=== PATIENT | female | born 1970 | race Caucasian/White ===

== ENCOUNTER 2016-07-13 23:31 | Emergency (ER) | payer MEDICAID ==
[~2016-07-13] VITALS: Ht 160 cm; Wt 92.0 kg
[~2016-07-13 23:31] MED LIST: BENT20TA PO; CPAP; FLEX10TA PO; HYDR50IN3 PO; HYOS0.1251 PO; LISI-363 PO; METH10TA PO; NAPR250T57 PO; OMEP20CA5 PO; PROM25TA5 PO; SUMA25TA2 PO; WAL-10TA2 PO; ZOLO20CO PO
[2016-07-13 23:54] VITALS: BP 111/78; PULSE 88; RESP 20; TEMP 98.7; O2SAT 97
[2016-07-14] MEDS ORDERED: PRIL20CA9 PO (01:21)
[2016-07-14] MEDS ORDERED: LORA10TA PO (01:21)
[2016-07-14] MEDS ORDERED: CYCL1TAB29 PO (01:21)
[2016-07-14] MEDS ORDERED: NAPR500T PO (01:21)
[2016-07-14] MEDS ORDERED: PROM25TA5 PO (01:21)
[2016-07-14] MEDS ORDERED: LEVS0.123 PO (01:21)
[2016-07-14] MEDS ORDERED: METH10TA PO (01:21)
[2016-07-14] MEDS ORDERED: ZOLO100T PO (01:21)
[2016-07-14] MEDS ORDERED: HYDR-3133 PO (01:21)
[2016-07-14] MEDS ORDERED: CEFT500T3 PO (02:23)
[2016-07-14] MEDS ORDERED: ALBU6.7H INH (02:23)
--- NOTE | 2016-07-14 02:23 | PD ---
HPI Chief Complaint: Cold / Flu Symptoms Time Seen by Provider: 02:17 Travel History International Travel<30 days: No Contact w/Intl Traveler<30days: No Traveled to known affect area: No History of Present Illness HPI 46 old female presents to the emergency department by private transportation for complaint of cold symptoms. Patient is had symptoms for 5-7 days. Patient denies fever but has had ongoing cough and wheezing. Patient denies sore throat or earache. Patient has had back pain associated with cough. No chest pain or abdominal pain. Patient states she has used an inhaler in the past is an out of her inhaler. Patient does smoke cigarettes. Patient has history of hypertension and denies diabetes. PFSH Past Medical History Narrative Medical Hypertension dyslipidemia seizure kidney stones renal stones tobaccoism cholecystectomy nursing notes reviewed Anxiety: Yes Depression: Yes Cancer: Yes (CERVICAL) Cardiovascular Problems: Yes High Cholesterol: Yes Chest Pain: Yes Diabetes: No Diminished Hearing: No GERD: Yes Hypertension: Yes Kidney Stones: Yes Reproductive: Yes Immunizations Current: No Migraines: Yes Seizures: Yes Sleep Apnea: Yes (CPAP AT NIGHT) Tetanus Vaccination: < 5 Years Influenza Vaccination: No ?: Not Menopausal: Yes Past Surgical History Cholecystectomy: Yes Genitourinary Surgery: Yes (BLADDER TUCK/KIDNEY STENTS) Hysterectomy: Yes Neurologic Surgery: Yes (C4 C5) Other Surgery: Yes (LEFT ARM STAPH INFECTION SEVERAL SURGERIES (X 12)) Social History Alcohol Use: No Tobacco Use: Yes (1 PPD) Substance Use: No Allergies-Medications (Allergen,Severity, Reaction): Coded Allergies: No Known Allergies (Verified , 07/14/16) Reported Meds & Prescriptions Reported Meds & Active Scripts Active Reported Zoloft (Sertraline HCl) 100 Mg Tab 100 Mg PO BID Phenergan (Promethazine HCl) 25 Mg Tab 25 Mg PO Q6H PRN Hydroxyzine HCl 25 Mg Tab 25 Mg PO TID Levsin (Hyoscyamine Sulfate) 0.125 Mg Tab 0.125 Mg PO Q6H Flexeril (Cyclobenzaprine HCl) 10 Mg Tab 10 Mg PO TID Loratadine 10 Mg Tab 10 Mg PO DAILY Methadone (Methadone HCl) 10 Mg Tab 10 Mg PO Q8HR Naproxen 500 Mg Tab 500 Mg PO BID Prilosec (Omeprazole) 20 Mg Cap 40 Mg PO DAILY Review of Systems Except as stated in HPI: all other systems reviewed are Neg General / Constitutional: No: Fever, Chills HENT: No: Congestion Cardiovascular: No: Chest Pain or Discomfort Respiratory: Positive: Cough, Wheezing Gastrointestinal: No: Abdominal Pain Genitourinary: No: Dysuria, Flank Pain Musculoskeletal: No: Myalgias, Arthralgias Skin: No Rash Neurologic: No: Weakness Psychiatric: No: Anxiety Endocrine: No: Heat Intolerance Hematologic/Lymphatic: No: Easy Bruising Physical Exam Narrative GENERAL: Well-developed well-nourished female in no acute distress no respiratory distress SKIN: Warm and dry. HEAD: Normocephalic. EYES: No scleral icterus. No injection or drainage. NECK: Supple, trachea midline. No JVD or lymphadenopathy. CARDIOVASCULAR: Regular rate and rhythm without murmurs, gallops, or rubs. RESPIRATORY: Breath sounds equal bilaterally few expiratory wheezes no rales or rhonchi. No accessory muscle use. GASTROINTESTINAL: Abdomen soft, non-tender, nondistended. MUSCULOSKELETAL: No cyanosis, or edema. BACK: Nontender without obvious deformity. No CVA tenderness. Data Data Last Documented VS Vital Signs Date Time Temp Pulse Resp B/P Pulse Ox O2 Delivery O2 Flow Rate FiO2 07/14/16 01:02 18 97 Room Air 07/13/16 23:54 98.7 88 111/78 MDM Medical Decision Making Medical Screen Exam Complete: Yes Emergency Medical Condition: Yes Medical Record Reviewed: Yes Differential Diagnosis Viral syndrome, environmental/seasonal allergies, bronchitis, pneumonia Narrative Course 46-year-old female with hypertension and history of bronchitis with ongoing tobacco use with nonproductive cough wheezing and upper respiratory infection symptoms; patient stable for outpatient management and follow-up with her primary care physician encouraged to discontinue tobacco use and prescriptions provided for Z-Mendel and albuterol. Diagnosis Primary Impression: Bronchitis Referrals: Primary Care Physician call for appointment Patient Instructions: General Instructions Additional Instructions: Increase fluid hydration Take acetaminophen or ibuprofen as needed per package directions for fever 100.4 F or greater Use inhaler as needed for wheezing/shortness of breath May use [id number] Coricidin HBP or Mucinex for cold symptoms Complete course of antibiotic Stop smoking cigarettes Return to the emergency department for any concerns or change in condition Med/Other Pt SpecificInfo: Prescription(s) given Scripts Albuterol 6.7 GM Inh (Proventil Hfa 6.7 GM Inh)90 Mcg/Act Aer2 Puff INH Q4-6H PRN (SHORTNESS OF BREATH) #1 INHALER Ref 0 Prov:Karen Conway MD 07/14/16 Cefuroxime (Ceftin)500 Mg [id number] Mg PO BID 10 Days Ref 0 Prov:Karen Conway MD 07/14/16 Disposition: 01 DISCHARGE HOME Condition: Stable Karen Conway MD Jul 14, 2016 02:23
[2016-07-14 02:39] VITALS: BP 110/78
== END 2016-07-14 02:41 | disposition home or self-care (01) ==
LOC: PHED 23:31 → PHEFT 07-14 02:41
DX: J40 Bronchitis, not specified as acute or chronic (principal); I10 Essential (primary) hypertension; E78.5 Hyperlipidemia, unspecified; F17.210 Nicotine dependence, cigarettes, uncomplicated
CPT/HCPCS: 99283

== ENCOUNTER 2016-11-01 22:42 | Emergency (ER) | payer MEDICAID ==
[~2016-11-01] VITALS: Ht 160 cm; Wt 92.4 kg
[~2016-11-01 22:42] MED LIST changes: +ALBU6.7H INH; -BENT20TA PO; +CEFT500T3 PO; -CPAP; +CYCL1TAB29 PO; -FLEX10TA PO; +HYDR-3133 PO; -HYDR50IN3 PO; -HYOS0.1251 PO; +LEVS0.123 PO; -LISI-363 PO; +LORA10TA PO; -NAPR250T57 PO; +NAPR500T PO; -OMEP20CA5 PO; +PRIL20CA9 PO; -SUMA25TA2 PO; -WAL-10TA2 PO; +ZOLO100T PO; -ZOLO20CO PO
[2016-11-01 22:58] VITALS: BP 123/80; PULSE 89; RESP 14; TEMP 97.5; O2SAT 98
--- NOTE | 2016-11-01 23:15 | PD ---
HPI Chief Complaint: Musculoskeletal Complaint Time Seen by Provider: 23:09 Travel History International Travel<30 days: No Contact w/Intl Traveler<30days: No Traveled to known affect area: No History of Present Illness HPI 46 old female presents to the emergency department for complaint of right-sided rib pain status post non-syncopal slip and fall while getting into a swimming pool with a slippery surface. Patient states that she contused her right chest wall against the handrail as she tried to enter the pool. Patient states she did not hit her head but did contuse her upper lip against the hand rail as well. Patient also strained her right fourth digit at the MCP but has not noticed any deformity redness swelling or decreased range of motion. Patient reports she is here to have x-rays of the right ribs she is concerned of fracture but does not want any other imaging performed that she does not feel it is necessary. Patient does take aspirin daily takes no other blood thinning agents. Patient did take Naprosyn prior to arrival to the emergency department. Injury occurred around 6 PM this evening. Patient states she did not hit her head or sustain other injury. No neck pain no back pain no shortness of breath no abdominal pain no other extremity injury. PFSH Past Medical History Narrative Medical Anxiety depression cervical cancer hysterectomy dyslipidemia hypertension left bundle branch block kidney stones stent sleep apnea seizure cholecystectomy arm surgery due to staph infection; tobacco use; nursing notes reviewed Anxiety: Yes Depression: Yes Cancer: Yes (CERVICAL) Cardiovascular Problems: Yes High Cholesterol: Yes Chest Pain: Yes Diabetes: No Diminished Hearing: No GERD: Yes Hypertension: Yes Kidney Stones: Yes Reproductive: Yes Immunizations Current: No Migraines: Yes Seizures: Yes Sleep Apnea: Yes (CPAP AT NIGHT) Menopausal: Yes Past Surgical History Cholecystectomy: Yes Genitourinary Surgery: Yes (BLADDER TUCK/KIDNEY STENTS) Hysterectomy: Yes Neurologic Surgery: Yes (C4 C5) Other Surgery: Yes (LEFT ARM STAPH INFECTION SEVERAL SURGERIES (X 12)) Social History Alcohol Use: No Tobacco Use: Yes (1 PPD) Substance Use: No Allergies-Medications (Allergen,Severity, Reaction): Coded Allergies: No Known Allergies (Verified , 11/01/16) Reported Meds & Prescriptions Reported Meds & Active Scripts Active Robaxin (Methocarbamol) 750 Mg Tab 750 Mg PO Q6HR Ibuprofen 800 Mg Tab 800 Mg PO Q8H PRN Proventil Hfa 6.7 GM Inh (Albuterol Sulfate) 90 Mcg/Act Aer 2 Puff INH Q4-6H PRN Reported Omeprazole 40 Mg Cap 40 Mg PO DAILY Claritin (Loratadine) 10 Mg Cap 10 Mg PO DAILY Zoloft (Sertraline HCl) 100 Mg Tab 100 Mg PO BID Phenergan (Promethazine HCl) 25 Mg Tab 25 Mg PO Q6H PRN Hydroxyzine HCl 25 Mg Tab 25 Mg PO TID Flexeril (Cyclobenzaprine HCl) 10 Mg Tab 10 Mg PO TID Methadone (Methadone HCl) 10 Mg Tab 10 Mg PO Q8HR Naproxen 500 Mg Tab 500 Mg PO BID Review of Systems Except as stated in HPI: all other systems reviewed are Neg General / Constitutional: No: Fever, Chills HENT: No: Congestion Cardiovascular: Positive: Chest Pain or Discomfort Respiratory: Positive: Pleuritic Pain, No: Shortness of Breath Gastrointestinal: No: Nausea, Vomiting, Abdominal Pain Genitourinary: No: Flank Pain Musculoskeletal: No: Myalgias, Arthralgias, Limited ROM Skin: No Rash Neurologic: No: Weakness Psychiatric: No: Anxiety Hematologic/Lymphatic: No: Easy Bruising Physical Exam Narrative GENERAL: Well-developed well-nourished male in no acute distress no respiratory distress; GCS 15 SKIN: Warm and dry. HEAD: Atraumatic. Normocephalic. EYES: Pupils equal and round. No scleral icterus. No injection or drainage. ENT: No nasal bleeding or discharge. Mucous membranes pink and moist. No upper lip edema ecchymosis abrasion or laceration dentition intact. NECK: Trachea midline. No JVD. Supple nontender no midline tenderness to direct palpation along the cervical spine CARDIOVASCULAR: Regular rate and rhythm. Chest wall: Mild tenderness to palpation along the right midaxillary line without abrasion laceration ecchymosis or crepitus. RESPIRATORY: No accessory muscle use. Clear to auscultation. Breath sounds equal bilaterally. GASTROINTESTINAL: Abdomen soft, non-tender, nondistended. Hepatic and splenic margins not palpable. MUSCULOSKELETAL: Extremities without clubbing, cyanosis, or edema. No obvious deformities. Patient is able to demonstrate full range of motion of all digits of the right hand without tenderness to palpation edema ecchymosis deformity; capillary refill brisk less than 2 seconds per digit. Bilateral radial pulses 2 + to palpation. NEUROLOGICAL: Awake and alert. No obvious cranial nerve deficits. Motor grossly within normal limits. Five out of 5 muscle strength in the arms and legs. Normal speech. PSYCHIATRIC: Appropriate mood and affect; insight and judgment normal. Data Data Last Documented VS Vital Signs Date Time Temp Pulse Resp B/P Pulse Ox O2 Delivery O2 Flow Rate FiO2 11/01/16 22:58 97.5 89 14 123/80 98 Orders Ribs, Uni (W/Exp Cxr-Min 3vw) (11/01/16 ) Ketorolac Inj (Toradol Inj) (11/02/16 00:45) Orphenadrine Inj (Norflex Inj) (11/02/16 00:45) MDM Medical Decision Making Medical Screen Exam Complete: Yes Emergency Medical Condition: Yes Medical Record Reviewed: Yes Interpretation(s) Last Impressions Ribs X-Ray 11/01/16 0000 Signed Impressions: Service Date/Time: Tuesday, November 01, 2016 23:16 - CONCLUSION: 1. No gross evidence of rib fracture. 2. At the right shoulder there is calcific tendinosis in the region of the rotator cuff. 3. Surgical clips in the right upper quadrant of the abdomen. Kei Bauer MD Differential Diagnosis Chest wall contusion, rib fracture, pneumothorax, multiple contusions Narrative Course Imaging of the right chest wall ordered Diagnosis Primary Impression: Rib contusion Qualified Code: S20.211A - Rib contusion, right, initial encounter Referrals: Pain Management call for appointment Primary Care Physician call for appointment Patient Instructions: General Instructions Med/Other Pt SpecificInfo: Prescription(s) given Scripts Methocarbamol (Robaxin)750 Mg [id number] Mg PO Q6HR #10 TAB Ref 0 Prov:Karen Conway MD 11/02/16 Ibuprofen 800 Mg [id number] Mg PO Q8H PRN (PAIN GREATER THAN 5) #12 TAB Ref 0 Prov:Karen Conway MD 11/02/16 Karen Conway MD Nov 01, 2016 23:15
[2016-11-01] MEDS ORDERED: OMEP40CA2 PO (23:16)
[2016-11-01] MEDS ORDERED: CLAR10CA3 PO (23:16)
--- NOTE | 2016-11-01 23:59 | RADRPT ---
EXAM DATE/TIME: 11/01/2016 23:16 [facility] COMPARISON: No previous studies available for comparison. INDICATIONS : Right sided rib pain after patient fell out of pool today MEDICAL HISTORY : None. SURGICAL HISTORY : None. ENCOUNTER: Initial ACUITY: 1 day PAIN SCORE: 8/10 LOCATION: Right axillary ribs FINDINGS: Multiple views of the right ribs were performed. There is no evidence of displaced fracture. No ivette tructive lesions or areas of periosteal thickening are seen. Expiratory view of the chest is negativ e for pneumothorax. The mediastinal structures are midline. CONCLUSION: 1. No gross evidence of rib fracture. 2. At the right shoulder there is calcific tendinosis in the region of the rotator cuff. 3. Surgical clips in the right upper quadrant of the abdomen. Kei Bauer MD on November 01, 2016 at 23:55 Board Certified Radiologist. This report was verified electronically.
[2016-11-02] MEDS ORDERED: IBUP800T23 PO (00:35)
[2016-11-02] MEDS ORDERED: ROBA750T PO (00:35)
[2016-11-02] MEDS ORDERED: KETOROLAC TROMETHAMINE 60 MG/2 ML (IM) VIAL IM ONE (00:45)
[2016-11-02] MEDS ORDERED: ORPHENADRINE INJ 60 MG/2 ML AMP IM ONE (00:45)
== END 2016-11-02 00:53 | disposition home or self-care (01) ==
LOC: PHED 22:42
DX: S20.211A Contusion of right front wall of thorax, initial encounter (principal); W01.0XXA Fall on same level from slipping, tripping and stumbling without subsequent striking against object, initial encounter
CPT/HCPCS: 71101; 96372; 99284; J1885; J2360

== ENCOUNTER 2016-11-08 19:38 | Emergency (ER) | payer MEDICAID ==
[~2016-11-08] VITALS: Ht 160 cm; Wt 93.1 kg
[~2016-11-08 19:38] MED LIST changes: -CEFT500T3 PO; +CLAR10CA3 PO; +IBUP800T23 PO; -LEVS0.123 PO; -LORA10TA PO; +OMEP40CA2 PO; -PRIL20CA9 PO; +ROBA750T PO
[2016-11-08 19:45] VITALS: BP 165/90; PULSE 91; RESP 20; TEMP 98.3; O2SAT 96
--- NOTE | 2016-11-08 20:53 | RADRPT ---
EXAM DATE/TIME: 11/08/2016 20:37 [facility] COMPARISON: CHEST SINGLE AP, February 15, 2015, 3:14. INDICATIONS : Right sided chest pain after fall 1 week ago MEDICAL HISTORY : None. SURGICAL HISTORY : None. ENCOUNTER: Initial ACUITY: 1 week PAIN SCORE: 9/10 LOCATION: Right lower chest FINDINGS: A single view of the chest demonstrates the lungs to be symmetrically aerated without evidence of mas s, infiltrate or effusion. The cardiomediastinal contours are unremarkable. Osseous structures demo nstrate ACDF hardware overlying the cervical spine. Calcified granulomas left lung base.. CONCLUSION: No acute disease. Ian Benavides MD on November 08, 2016 at 20:52 Board Certified Radiologist. This report was verified electronically.
[2016-11-08] MEDS ORDERED: HYDR-3533 PO ×2 (21:02→21:13)
--- NOTE | 2016-11-08 21:12 | PD ---
HPI Chief Complaint: Musculoskeletal Complaint Time Seen by Provider: 20:25 Travel History International Travel<30 days: No Contact w/Intl Traveler<30days: No Traveled to known affect area: No History of Present Illness HPI 46-year-old female presents to the emergency room for evaluation of right anterior rib pain for the past one week. Patient states she slipped in the pool and struck her chest up against the handrail. She had immediate pain. Patient came to the emergency room and had rib x-rays that were negative. She was discharged ibuprofen and Robaxin. States she was improving until today. States she woke up with worsening pain. Pain is worse with ambulation, deep breathing, bending, or twisting. Denies difficulty breathing or shortness of breath. History Past Medical History Anxiety: Yes Cancer: Yes (CERVICAL, OVARIAN TUMORS) Heart Rhythm Problems: Yes (LEFT BUNDLE BRANCH BLOCK) Cardiovascular Problems: Yes High Cholesterol: Yes Chest Pain: Yes Depression: Yes Diabetes: No GERD: Yes Hearing: No Hypertension: Yes Kidney Stones: Yes Pneumonia: Yes Reproductive: Yes (LASER SURGERY, COMPLETE HYSTERECTOMY) Immunizations Current: No Migraines: Yes Sleep Apnea: Yes (CPAP AT NIGHT) Ulcer: Yes (GASTRIC) Vision or Eye Problem: No ?: Not Menopausal: Yes : 1 Para: 1 Past Surgical History Section: Yes (1984) Cholecystectomy: Yes Genitourinary Surgery: Yes (BLADDER TUCK/KIDNEY STENTS) Hysterectomy: Yes (1988) Neurologic Surgery: Yes (C4 C5) Other Surgery: Yes (LEFT ARM STAPH INFECTION SEVERAL SURGERIES (X 12)) Social History Tobacco Use in Home: No Alcohol Use: No Tobacco Use: Yes (1 PPD) Substance Use: No Allergies-Medications (Allergen,Severity, Reaction): Coded Allergies: No Known Allergies (Verified , 11/08/16) Reported Meds & Prescriptions Reported Meds & Active Scripts Active Lortab (Hydrocodone-Acetaminophen) 5-325 Mg Tab 1 Tab PO Q6H PRN Robaxin (Methocarbamol) 750 Mg Tab 750 Mg PO Q6HR Ibuprofen 800 Mg Tab 800 Mg PO Q8H PRN Proventil Hfa 6.7 GM Inh (Albuterol Sulfate) 90 Mcg/Act Aer 2 Puff INH Q4-6H PRN Reported Omeprazole 40 Mg Cap 40 Mg PO DAILY Claritin (Loratadine) 10 Mg Cap 10 Mg PO DAILY Zoloft (Sertraline HCl) 100 Mg Tab 100 Mg PO BID Hydroxyzine HCl 25 Mg Tab 25 Mg PO TID Flexeril (Cyclobenzaprine HCl) 10 Mg Tab 10 Mg PO TID Methadone (Methadone HCl) 10 Mg Tab 10 Mg PO Q8HR Naproxen 500 Mg Tab 500 Mg PO BID ROS Except as stated in HPI: all other systems reviewed are Neg Physical Exam Narrative GENERAL: Well-nourished, well-developed female in no acute distress. Afebrile. Ambulatory. SKIN: Focused skin assessment warm/dry. HEAD: Normocephalic. EYES: No scleral icterus. No injection or drainage. NECK: Supple, trachea midline. No JVD or lymphadenopathy. CARDIOVASCULAR: Regular rate and rhythm without murmurs, gallops, or rubs. RESPIRATORY: Breath sounds equal bilaterally. No accessory muscle use. CHEST: Extreme tenderness to palpation of the right anterior rib cage. No deformity or crepitance. No retractions or use of accessory muscles. GASTROINTESTINAL: Abdomen soft, non-tender, nondistended. No guarding. Data Data Last Documented VS Vital Signs Date Time Temp Pulse Resp B/P Pulse Ox O2 Delivery O2 Flow Rate FiO2 11/08/16 19:45 98.3 91 20 165/90 96 Orders Chest, Single Ap (11/08/16 ) Acetamin-Hydrocod 325-5 Mg (Lorane 5-325 (11/08/16 21:30) MDM Medical Decision Making Medical Screen Exam Complete: Yes Emergency Medical Condition: Yes Medical Record Reviewed: Yes Differential Diagnosis rib contusion, rib fracture, intraabdominal process unlikely Narrative Course 46-year-old female presents to the emergency room for evaluation of right-sided anterior rib pain after slip and fall 1 week ago. Patient was seen 1 week ago for the same and had repeat x-rays that were negative. She was discharged with Robaxin in department. States her pain was improving until today. Woke up with worsening pain. Denies difficulty breathing, nausea, vomiting, or difficulty eating or drinking. Physical exam is unremarkable. There is mild contusion on the right breast. No obvious deformity, crepitus. No abdominal pain. Abdomen soft, nontender. No peritoneal signs. She is crying in pain. Patient was re-x-rayed to evaluate for any changes in rib position or pneumothorax. Patient was given Lortab in the emergency room and discharged with prescription of same. Told to follow-up the primary care physician or return to the emergency room for worsening symptoms. Diagnosis Primary Impression: Rib contusion Qualified Code: S20.211A - Rib contusion, right, initial encounter Referrals: Primary Care Physician Patient Instructions: General Instructions, Rib Contusion (ED) Additional Instructions: Rest and drink plenty of fluids. Take Lortab as directed, as needed for pain. No alcohol or driving while taking this medication. Apply ice to the affected area for 20 minutes at a time, as needed for pain and swelling. Follow-up with a primary care physician. Return to the emergency room for worsening symptoms. Med/Other Pt SpecificInfo: Prescription(s) given Scripts Hydrocodone-Acetaminophen (Lortab)5-325 Mg Tab1 Tab PO Q6H PRN (PAIN) #12 TAB Ref 0 Prov:Karen Conway MD 11/08/16 Disposition: 01 DISCHARGE HOME Condition: Stable Malka Mccabe Nov 08, 2016 21:12
[2016-11-08] MEDS ORDERED: ACETAMINOPHEN/HYDROcodone 325 MG/5 MG TAB PO ONE (21:30)
== END 2016-11-08 21:50 | disposition home or self-care (01) ==
LOC: PHEFT 19:38
DX: S20.211A Contusion of right front wall of thorax, initial encounter (principal); W01.0XXA Fall on same level from slipping, tripping and stumbling without subsequent striking against object, initial encounter; Y92.34 Swimming pool (public) as the place of occurrence of the external cause
CPT/HCPCS: 71010; 99283

== ENCOUNTER 2016-11-26 23:29 | Emergency (ER) | payer MEDICAID ==
[~2016-11-26] VITALS: Ht 160 cm; Wt 94.9 kg
[~2016-11-26 23:29] MED LIST changes: +HYDR-3533 PO; -PROM25TA5 PO
[2016-11-26 23:35] VITALS: BP 168/84; PULSE 85; RESP 18; TEMP 98.2; O2SAT 96
[2016-11-27] MEDS ORDERED: NEOMYCIN/POLYMYXIN/HYDROCORT OTIC SOLN 10 ML BTL LEFT EAR ONE (01:15)
--- NOTE | 2016-11-27 01:17 | PD ---
HPI Chief Complaint: ENT Complaint Time Seen by Provider: 01:16 Travel History International Travel<30 days: No Contact w/Intl Traveler<30days: No Traveled to known affect area: No History of Present Illness HPI 46 old female presents to the emergency department by private transportation for complaint of left ear with swelling 2 days. No fever chills nausea vomiting or injury. Patient also denies any drainage or blood from the ear. No decreased hearing. Patient denies any dental pain or jaw pain. No neck pain. Patient is not diabetic. Patient is use [id number] medications without relief. Patient denies other concerns or complaints. PFSH Past Medical History Narrative Medical Anxiety depression left bundle branch block ovarian cancer dyslipidemia seizure ; cholecystectomy ; tobacco use; nursing notes reviewed Anxiety: Yes Depression: Yes Heart Rhythm Problems: Yes (LEFT BUNDLE BRANCH BLOCK) Cancer: Yes (CERVICAL, OVARIAN TUMORS) Cardiovascular Problems: Yes High Cholesterol: Yes Chest Pain: Yes Diabetes: No Diminished Hearing: No GERD: Yes Hypertension: Yes Kidney Stones: Yes Reproductive: Yes (LASER SURGERY, COMPLETE HYSTERECTOMY) Immunizations Current: No Migraines: Yes Pneumonia: Yes Seizures: Yes (CHILDHOOD TO MID TWENTIES) Sleep Apnea: Yes (CPAP AT NIGHT) Ulcer: Yes (GASTRIC) Menopausal: Yes : 1 Para: 1 Past Surgical History Section: Yes (1984) Cholecystectomy: Yes Genitourinary Surgery: Yes (BLADDER TUCK/KIDNEY STENTS) Hysterectomy: Yes (1988) Neurologic Surgery: Yes (C4 C5) Other Surgery: Yes (LEFT ARM STAPH INFECTION SEVERAL SURGERIES (X 12)) Social History Alcohol Use: No Tobacco Use: Yes (1 PPD) Substance Use: No Allergies-Medications (Allergen,Severity, Reaction): Coded Allergies: No Known Allergies (Verified , 11/27/16) Reported Meds & Prescriptions Reported Meds & Active Scripts Active Cipro Hc Otic Drops (Ciprofloxacin/Hydrocortisone) 0.2-1% Susp 3 Drop LEFT EAR BID Keflex (Cephalexin) 500 Mg Cap 500 Mg PO Q6H 7 Days Lortab (Hydrocodone-Acetaminophen) 5-325 Mg Tab 1 Tab PO Q6H PRN Robaxin (Methocarbamol) 750 Mg Tab 750 Mg PO Q6HR Ibuprofen 800 Mg Tab 800 Mg PO Q8H PRN Proventil Hfa 6.7 GM Inh (Albuterol Sulfate) 90 Mcg/Act Aer 2 Puff INH Q4-6H PRN Reported Amlodipine (Amlodipine Besylate) 10 Mg Tab 10 Mg PO DAILY Atorvastatin (Atorvastatin Calcium) 40 Mg Tab 40 Mg PO HS Aspirin 81 Mg Chew 81 Mg CHEW DAILY Omeprazole 40 Mg Cap 40 Mg PO DAILY Claritin (Loratadine) 10 Mg Cap 10 Mg PO DAILY Zoloft (Sertraline HCl) 100 Mg Tab 100 Mg PO BID Hydroxyzine HCl 25 Mg Tab 25 Mg PO TID Flexeril (Cyclobenzaprine HCl) 10 Mg Tab 10 Mg PO TID Methadone (Methadone HCl) 10 Mg Tab 10 Mg PO Q8HR Naproxen 500 Mg Tab 500 Mg PO BID Review of Systems Except as stated in HPI: all other systems reviewed are Neg General / Constitutional: No: Fever, Chills Eyes: No: Visual changes HENT: Positive: Earache, No: Headaches, Ear Discharge Cardiovascular: No: Chest Pain or Discomfort Respiratory: No: Shortness of Breath Gastrointestinal: No: Vomiting Genitourinary: No: Flank Pain Musculoskeletal: No: Pain Skin: No Rash Neurologic: No: Weakness Hematologic/Lymphatic: No: Lymph Node Enlargement Physical Exam Narrative GENERAL: Well-developed well-nourished female in no acute distress no respiratory distress SKIN: Warm and dry. HEAD: Normocephalic. EYES: No scleral icterus. No injection or drainage. ENT: Mucous membranes moist airway is patent dentition intact no gingival edema right external auditory canal no foreign body tympanic membrane no redness no dullness to loss of landmarks; left external auditory canal edema erythema no retained foreign body. Appears erythematous with difficult to evaluate completely due to soft tissue swelling of the external auditory canal. No tenderness of the tragus or postauricular mass or tenderness or fluctuance. NECK: Supple, trachea midline. No JVD or lymphadenopathy. No meningismus no nuchal rigidity CARDIOVASCULAR: Regular rate and rhythm without murmurs, gallops, or rubs. RESPIRATORY: Breath sounds equal bilaterally. No accessory muscle use. GASTROINTESTINAL: Abdomen soft, non-tender, nondistended. MUSCULOSKELETAL: No cyanosis, or edema. BACK: Nontender without obvious deformity. No CVA tenderness. Data Data Last Documented VS Vital Signs Date Time Temp Pulse Resp B/P Pulse Ox O2 Delivery O2 Flow Rate FiO2 11/27/16 01:23 85 18 11/27/16 01:21 98.2 168/84 96 Orders [id number]-Aj Otic Soln (Cortispo (11/27/16 01:15) MDM Medical Decision Making Medical Screen Exam Complete: Yes Emergency Medical Condition: Yes Medical Record Reviewed: Yes Differential Diagnosis Otitis externa otitis media external auditory canal foreign body abscess Narrative Course Patient administered Cortisporin Otic drops and ear wick Patient discharged with prescription for oral antibiotic and ear drop and stable for outpatient management. Diagnosis Primary Impression: Otitis externa Qualified Code: H60.502 - Acute otitis externa of left ear, unspecified type Referrals: Primary Care Physician Patient Instructions: General Instructions Med/Other Pt SpecificInfo: Prescription(s) given Scripts Ciprofloxacin-Hydrocortisone Otic Drops (Cipro Hc Otic Drops)0.2-1% Susp3 Drop LEFT EAR BID #1 BOTTLE Ref 0 Prov:Karen Conway MD 11/27/16 Cephalexin (Keflex)500 Mg Twl660 Mg PO Q6H 7 Days Ref 0 Prov:Karen Conway MD 11/27/16 Karen Conway MD Nov 27, 2016 01:17
[2016-11-27] MEDS ORDERED: AMLO10TA2 PO (01:19)
[2016-11-27] MEDS ORDERED: ATOR40TA16 PO (01:19)
[2016-11-27] MEDS ORDERED: ASPI81CH CHEW (01:19)
[2016-11-27 01:21] VITALS: BP 168/84; PULSE 85; RESP 18; TEMP 98.2; O2SAT 96
[2016-11-27] MEDS ORDERED: CEPH-460 PO (01:22)
[2016-11-27] MEDS ORDERED: CIPRHC10A LEFT EAR (01:22)
== END 2016-11-27 02:08 | disposition home or self-care (01) ==
LOC: PHED 23:29
DX: H60.92 Unspecified otitis externa, left ear (principal); I10 Essential (primary) hypertension
CPT/HCPCS: 99283

== ENCOUNTER 2017-03-13 19:47 | Emergency (ER) | payer MEDICAID ==
[~2017-03-13] VITALS: Ht 160 cm; Wt 93.4 kg
[~2017-03-13 19:47] MED LIST changes: +AMLO10TA2 PO; +ASPI-516 CHEW; +ATOR40TA16 PO; +CEPH-460 PO; +CIPRHC10A LEFT EAR; +CYCL10TA PO; -CYCL1TAB29 PO; +IBUP1TAB7 PO; -IBUP800T23 PO; -NAPR500T PO; +NAPR500T2 PO
[2017-03-13 19:50] VITALS: BP 153/75; PULSE 85; RESP 16; TEMP 98; O2SAT 97
[2017-03-13] MEDS ORDERED: CIPR0.3S2 LEFT EYE (19:59)
--- NOTE | 2017-03-13 20:04 | PD ---
HPI . Abscess Chief Complaint: Skin Problem Time Seen by Provider: 19:58 Travel History International Travel<30 days: No Contact w/Intl Traveler<30days: No Traveled to known affect area: No History of Present Illness HPI 46-year-old female presents emergency department for evaluation of a 2 cm in diameter abscess to left lateral breast x one week. Patient states she gets abscesses frequently. Patient denies any fever, chills, malaise, shortness breath, chest pain, nausea, vomiting, diarrhea. PFSH Past Medical History Anxiety: Yes Depression: Yes Heart Rhythm Problems: Yes (LEFT BUNDLE BRANCH BLOCK) Cancer: Yes (CERVICAL, OVARIAN TUMORS) Cardiovascular Problems: Yes High Cholesterol: Yes Chest Pain: Yes Diabetes: No Diminished Hearing: No GERD: Yes Hypertension: Yes Kidney Stones: Yes Reproductive: Yes (LASER SURGERY, COMPLETE HYSTERECTOMY) Immunizations Current: No Migraines: Yes Pneumonia: Yes Seizures: Yes (CHILDHOOD TO MID TWENTIES) Sleep Apnea: Yes (CPAP AT NIGHT) Ulcer: Yes (GASTRIC) ?: Not Menopausal: Yes : 1 Para: 1 Past Surgical History Section: Yes (1984) Cholecystectomy: Yes Genitourinary Surgery: Yes (BLADDER TUCK/KIDNEY STENTS) Hysterectomy: Yes Neurologic Surgery: Yes (C4 C5) Other Surgery: Yes (LEFT ARM STAPH INFECTION SEVERAL SURGERIES (X 12)) Social History Alcohol Use: No Tobacco Use: Yes (1 PPD) Substance Use: No Allergies-Medications (Allergen,Severity, Reaction): Coded Allergies: No Known Allergies (Verified Adverse Reaction, Unknown, 03/13/17) Reported Meds & Prescriptions Reported Meds & Active Scripts Active Proventil Hfa 6.7 GM Inh (Albuterol Sulfate) 90 Mcg/Act Aer 2 Puff INH Q4-6H PRN Reported Amlodipine (Amlodipine Besylate) 10 Mg Tab 10 Mg PO DAILY Atorvastatin (Atorvastatin Calcium) 40 Mg Tab 40 Mg PO HS Aspirin 81 Mg Chew 81 Mg CHEW DAILY Omeprazole 40 Mg Cap 40 Mg PO DAILY Zoloft (Sertraline HCl) 100 Mg Tab 100 Mg PO BID Flexeril (Cyclobenzaprine HCl) 10 Mg Tab 10 Mg PO TID Methadone (Methadone HCl) 10 Mg Tab 10 Mg PO Q8HR Review of Systems Except as stated in HPI: all other systems reviewed are Neg Physical Exam Narrative GENERAL: Well-nourished, well-developed 46 year old female patient in no acute distress. Nontoxic-appearing. SKIN: There is an indurated area in the left lateral breast which measures about 2 cm in diameter. It is fluctuant but there is no pointing or drainage. There is a zone of inflammation around it but no lymphangitis. HEAD: Normocephalic. Atraumatic. EYES: No scleral icterus. No injection or drainage. NECK: Supple, trachea midline. No JVD or lymphadenopathy. CARDIOVASCULAR: Regular rate and rhythm without murmurs, gallops, or rubs. RESPIRATORY: Breath sounds equal bilaterally. No accessory muscle use. GASTROINTESTINAL: Abdomen soft, non-tender, nondistended. MUSCULOSKELETAL: No cyanosis, or edema. BACK: Nontender without obvious deformity. No CVA tenderness. Data Data Last Documented VS Vital Signs Date Time Temp Pulse Resp B/P (MAP) Pulse Ox O2 Delivery O2 Flow Rate FiO2 03/13/17 19:50 98.0 85 16 153/75 (101) 97 Orders Orders Lidocaine 1% Inj (50 Ml) (Xylocaine 1% I (03/13/17 20:30) [facility] Medical Decision Making Medical Screen Exam Complete: Yes Emergency Medical Condition: Yes Differential Diagnosis Differential diagnoses include but not limited to cellulitis, abscess, infection Narrative Course 46-year-old female presents emergency department for evaluation of abscess to her left lateral breast 1 week. I&D was performed. Please see my procedure narrative. Patient discharged home with prescription for Bactrim and Keflex and instructions to keep the wound clean and dry, return to the emergency Department with any worsening condition but otherwise follow-up primary care Procedures Procedure Narrative INCISION AND DRAINAGE OF ABSCESS: The area was prepped and was sterilely draped. A subcutaneous wheal of 1 % Xylocaine with a total number 7 mL was used to anesthetize the area properly. A number 11 scalpel was used to make a 1 -cm incision across the area of the abscess. The abscess was drained, complex loculations were broken down, and irrigated with normal saline. Cultures were obtained. Sterile dressing applied. Patient advised to keep wound clean and dry. Diagnosis Primary Impression: Encounter for incision and drainage procedure Additional Impression: Abscess Referrals: [employer] Patient Instructions: Abscess (GEN), Abscess Incision and Drainage (DC), General Instructions Additional Instructions: Please return to emergency department if your symptoms return or worsen. Follow up with your primary care provider. Take medications as prescribed. Bactrim is free at [facility]. Warm moist compress to the site will facilitate drainage. Keep area clean and dry with sterile dressing. May take ibuprofen or Tylenol [id number] for pain or swelling Med/Other Pt SpecificInfo: Prescription(s) given Scripts Cephalexin (Keflex) 500 Mg Cap 500 MG PO Q6H for Infection for 10 Days, #40 CAP 0 Refills Prov: Emi Saxena 03/13/17 Sulfamethoxazole-Trimethoprim (Bactrim DS) 800-160 Mg Tab 1 TAB PO BID for Infection for 10 Days, #20 TAB 0 Refills Prov: Emi Saxena 03/13/17 Disposition: 01 DISCHARGE HOME Condition: Stable Emi Saxena Mar 13, 2017 20:04
[2017-03-13] MEDS ORDERED: LIDOCAINE HCL 1% 50 ML VIAL INFIL ONE (20:30)
[2017-03-13] MEDS ORDERED: BACT800T5 PO (20:57)
[2017-03-13] MEDS ORDERED: CEPH-460 PO (20:57)
== END 2017-03-13 21:25 | disposition home or self-care (01) ==
LOC: PHEFT 19:47
DX: N61.1 Abscess of the breast and nipple (principal); B95.61 Methicillin susceptible Staphylococcus aureus infection as the cause of diseases classified elsewhere; F17.200 Nicotine dependence, unspecified, uncomplicated
CPT/HCPCS: 10060; 86403; 87070; 87186; 87205

== ENCOUNTER 2017-09-15 23:46 | Emergency (ER) | payer MEDICAID ==
[~2017-09-15] VITALS: Ht 160 cm; Wt 97.0 kg
[~2017-09-15 23:46] MED LIST changes: +BACT800T5 PO; -CIPRHC10A LEFT EAR; -CLAR10CA3 PO; -HYDR-3133 PO; -HYDR-3533 PO; -IBUP1TAB7 PO; -NAPR500T2 PO; -ROBA750T PO
[2017-09-16 00:32] VITALS: BP 164/85; PULSE 90; RESP 20; TEMP 98.4; O2SAT 96
[2017-09-16] MEDS ORDERED: METH10TA PO (00:52)
[2017-09-16] MEDS ORDERED: HYDR1CAP30 PO (00:56)
[2017-09-16] MEDS ORDERED: RANI150T PO (00:56)
[2017-09-16] MEDS ORDERED: MELO15TA20 PO (00:56)
--- NOTE | 2017-09-16 02:22 | RADRPT ---
EXAM DATE: 09/16/2017 2:15 AM EDT AGE/SEX: 47 years / Female INDICATIONS: Cough and chest pain. CLINICAL DATA: This is the patient's initial encounter. Patient reports that signs and symptoms have been present for 3 days and indicates a pain score of 6/10. MEDICAL/SURGICAL HISTORY: Carcinoma, cervical. Hysterectomy. Cholecystectomy. Cervical. COMPARISON: [facility], CT ABDOMEN & PELVIS W CONTRAST, 12/31/2015. [facility], CHEST SINGLE AP, 11/08/2016. . FINDINGS: No acute infiltrate demonstrated. No pleural effusion or pneumothorax. Small granulomata at the left base again noted. Heart size stable, within normal limits. CONCLUSION: No acute cardiopulmonary disease demonstrated. Electronically signed by: Dallin Connell MD 09/16/2017 2:21 AM EDT
[2017-09-16] MEDS ORDERED: RESP: ALBUTEROL 2.5 MG/IPRATROPIUM 0.5 MG NEB (SCH) NEB ONE (02:45)
[2017-09-16] MEDS ORDERED: IBUPROFEN 800 MG TAB PO ONE (02:45)
[2017-09-16] MEDS ORDERED: BENZONATATE 100 MG CAP PO ONE (02:45)
[2017-09-16 03:08] LABS: BILIRUBIN, URINE NEG (NEG); BLOOD, URINE NEG (NEG); GLUCOSE,URINE NEG (NEG); KETONE, URINE NEG (NEG); NITRITE,URINE NEG (NEG); PH, URINE 5.5 (5.0-8.5); URINE COLOR YELLOW (YELLW/STRAW); URINE LEUKOCYTE ESTERASE NEG (NEG)
[2017-09-16 03:22] LABS: CALCIUM OXALATE CRYSTALS,URINE OCC /hpf; RBC, URINE 0-3 /hpf (0-3); SQUAMOUS EPITHELIAL CELL URINE 0-5 /hpf (0-5); WBC, URINE 0-2 /hpf (0-5)
[2017-09-16] MEDS ORDERED: RESP: LIDOCAINE HCL 4% PF 5 ML NEB NEB ONE (03:30)
[2017-09-16] MEDS ORDERED: PROM25TA10 PO (03:54)
[2017-09-16] MEDS ORDERED: ALBUAER3 INH (03:54)
[2017-09-16] MEDS ORDERED: CEPH-460 PO (03:54)
[2017-09-16] MEDS ORDERED: MEDR4PAK PO (03:54)
--- NOTE | 2017-09-16 03:54 | PD ---
HPI Chief Complaint: Cold / Flu Symptoms Time Seen by Provider: 02:40 Travel History International Travel<30 days: No Contact w/Intl Traveler<30days: No Traveled to known affect area: No History of Present Illness HPI 47-year-old female presents to the emergency department for complaint of severe cough that is causing her discomfort and inability to get any rest. Symptoms have been present for 3 days. No fever no chills cough has been nonproductive but persistent. Patient denies any history of reactive airways disease asthma bronchitis. Review of medical records indicates patient has been evaluated and treated for bronchitis. Patient does not use her rescue inhaler at home. No other family members ill. PFSH Past Medical History Narrative Medical cholecystectomy anxiety depression high cholesterol chest pain hypertension sleep apnea pneumonia kidney stone Anxiety: Yes Depression: Yes Heart Rhythm Problems: Yes (LEFT BUNDLE BRANCH BLOCK) Cancer: Yes (CERVICAL, OVARIAN TUMORS) Cardiovascular Problems: Yes (LBBB) High Cholesterol: Yes Chest Pain: Yes Diabetes: No Diminished Hearing: No GERD: Yes Hypertension: Yes Kidney Stones: Yes Reproductive: Yes (LASER SURGERY, COMPLETE HYSTERECTOMY) Immunizations Current: No Migraines: Yes Pneumonia: Yes Seizures: Yes (CHILDHOOD TO MID TWENTIES) Sleep Apnea: Yes (CPAP AT NIGHT) Ulcer: Yes (GASTRIC) Tetanus Vaccination: < 5 Years Influenza Vaccination: Yes ?: Not Menopausal: Yes : 1 Para: 1 Past Surgical History Section: Yes (1984) Cholecystectomy: Yes Genitourinary Surgery: Yes (BLADDER TUCK/KIDNEY STENTS) Hysterectomy: Yes Neurologic Surgery: Yes (C4 C5) Other Surgery: Yes (LEFT ARM STAPH INFECTION SEVERAL SURGERIES (X 12)) Social History Alcohol Use: No Tobacco Use: Yes (1/2 PPD) Substance Use: No Allergies-Medications (Allergen,Severity, Reaction): Coded Allergies: No Known Allergies (Verified Adverse Reaction, Unknown, 09/16/17) Reported Meds & Prescriptions Reported Meds & Active Scripts Active Phenergan (Promethazine HCl) 25 Mg Tablet 25 Mg PO Q6H PRN Proair Hfa 8.5 GM Inh (Albuterol Sulfate) 90 Mcg/Act Aer 2 Puff INH Q4-6H PRN 108 mcg/actuation Medrol Dosepak (Methylprednisolone) 4 Mg Dspk 4 Mg PO DIRECTED Per Pharmacist direction Keflex (Cephalexin) 500 Mg Capsule 500 Mg PO Q6H 7 Days Proventil Hfa 6.7 GM Inh (Albuterol Sulfate) 90 Mcg/Act Aer 2 Puff INH Q4-6H PRN Reported Hydroxyzine Pamoate 25 Mg Cap 25 Mg PO TID Meloxicam 15 Mg Tab 15 Mg PO DAILY Ranitidine (Ranitidine HCl) 150 Mg Tab 150 Mg PO BID Methadone (Methadone HCl) 10 Mg Tab 10 Mg PO TID Amlodipine (Amlodipine Besylate) 10 Mg Tab 10 Mg PO DAILY Atorvastatin (Atorvastatin Calcium) 40 Mg Tab 40 Mg PO HS Zoloft (Sertraline HCl) 100 Mg Tab 100 Mg PO BID Flexeril (Cyclobenzaprine HCl) 10 Mg Tab 10 Mg PO TID Review of Systems Except as stated in HPI: all other systems reviewed are Neg Physical Exam Narrative GENERAL: Well-developed well-nourished female no acute respiratory distress with coughing no stridor or hoarseness SKIN: Warm and dry. HEAD: Normocephalic. EYES: No scleral icterus. No injection or drainage. ENT: Mucous membranes moist airways patent. NECK: Supple, trachea midline. No JVD or lymphadenopathy. CARDIOVASCULAR: Regular rate and rhythm without murmurs, gallops, or rubs. RESPIRATORY: Breath sounds equal bilaterally diminished. No accessory muscle use. GASTROINTESTINAL: Abdomen soft, non-tender, nondistended. MUSCULOSKELETAL: No cyanosis, or edema. BACK: Nontender without obvious deformity. No CVA tenderness. Data Data Last Documented VS Vital Signs Date Time Temp Pulse Resp B/P (MAP) Pulse Ox O2 Delivery O2 Flow Rate FiO2 09/16/17 04:09 89 18 114/64 (81) 96 09/16/17 00:45 Room Air 09/16/17 00:32 98.4 Orders Orders Chest, Single Ap (09/16/17 01:52) Benzonatate (Tessalon) (09/16/17 02:45) Ibuprofen (Motrin) (09/16/17 02:45) Albuterol-Ipratropium Neb (Duoneb Neb) (09/16/17 02:45) Urinalysis - C+S If Indicated (09/16/17 02:40) Lidocaine Pf 4% Neb (Lidocaine Pf 4% Neb (09/16/17 03:30) Ed Discharge Order (09/16/17 03:54) Labs Laboratory Tests Test 09/16/17 02:40 Urine Color YELLOW Urine Turbidity CLEAR Urine pH 5.5 Urine Specific [place] GREATER/EQUAL 1.030 Urine Protein NEG mg/dL Urine Glucose (UA) NEG mg/dL Urine Ketones NEG mg/dL Urine Occult Blood NEG Urine Nitrite NEG Urine Bilirubin NEG Urine Urobilinogen 0.2 MG/DL Urine Leukocyte Esterase NEG Urine RBC 0-3 /hpf Urine WBC 0-2 /hpf Urine Squamous Epithelial Cells 0-5 /hpf Urine Calcium Oxalate Crystals OCC /hpf Urine Bacteria NONE /hpf Microscopic Urinalysis Comment CULT NOT INDICATED MDM Medical Decision Making Medical Screen Exam Complete: Yes Emergency Medical Condition: Yes Medical Record Reviewed: Yes Interpretation(s) UA: wnl Last Impressions Chest X-Ray 09/16/17 0152 Signed Impressions: CONCLUSION: No acute cardiopulmonary disease demonstrated. Vital Signs Date Time Temp Pulse Resp B/P (MAP) Pulse Ox O2 Delivery O2 Flow Rate FiO2 09/16/17 04:09 89 18 114/64 (81) 96 09/16/17 04:04 18 09/16/17 00:45 96 Room Air 09/16/17 00:32 98.4 90 20 164/85 (111) 96 Differential Diagnosis Cough bronchitis pneumonia reactive airways disease aspiration CHF Narrative Course Patient treated with updraft treatments; nebulized lidocaine; Tessalon Perles 100 mg symptoms improved and stable for outpatient management Imaging study not evidence for pneumonia or infiltrate Patient feeling clinically improved and stable for outpatient management will be provided prescription for steroid inhaler and antibiotic. Diagnosis Primary Impression: Bronchitis Referrals: Primary Care Physician call for appointment Patient Instructions: General Instructions Additional Instructions: Increase fluid hydration Use coolness vaporizer at bedside Take acetaminophen/Tylenol as needed for fever 100.4F or greater Complete course of antibiotic Use inhaler for wheezing and shortness of breath Follow-up with her primary care provider Return to the emergency department for any concerns or change in condition Med/Other Pt SpecificInfo: Prescription(s) given Scripts Promethazine (Phenergan) 25 Mg Tablet 25 MG PO Q6H Y for NAUSEA OR VOMITING, #6 TAB 0 Refills Prov: Karen Conway MD 09/16/17 Albuterol 8.5 GM Inh (Proair Hfa 8.5 GM Inh) 90 Mcg/Act Aer 2 PUFF INH Q4-6H Y for SHORTNESS OF BREATH, #1 INHALER 0 Refills 108 mcg/actuation Prov: Karen Conway MD 09/16/17 Methylprednisolone Dosepak (Medrol Dosepak) 4 Mg Dspk 4 MG PO DIRECTED, #1 DSPK 0 Refills Per Pharmacist direction Prov: Karen Conway MD 09/16/17 Cephalexin (Keflex) 500 Mg Capsule 500 MG PO Q6H for Infection for 7 Days, #28 CAP 0 Refills Prov: Karen Conway MD 09/16/17 Disposition: 01 DISCHARGE HOME Condition: Stable Karen Conway MD September 16, 2017 03:54
[2017-09-16 04:04] VITALS: RESP 18
[2017-09-16 04:09] VITALS: BP 114/64
== END 2017-09-16 04:10 | disposition home or self-care (01) ==
LOC: PHED 23:46
DX: J40 Bronchitis, not specified as acute or chronic (principal); F32.9 Major depressive disorder, single episode, unspecified; F41.9 Anxiety disorder, unspecified; E78.00 Pure hypercholesterolemia, unspecified; I10 Essential (primary) hypertension; G47.30 Sleep apnea, unspecified; K21.9 Gastro-esophageal reflux disease without esophagitis; F17.200 Nicotine dependence, unspecified, uncomplicated
CPT/HCPCS: 71045; 81001; 94640; 94664; 99284